=== PATIENT | male | born 1980 | race Caucasian/White ===

== ENCOUNTER 2017-12-26 18:40 | Emergency (ER) | payer SELFPAY ==
[2017-12-26] MEDS: ACETAMINOPHEN 500 MG TAB PO (19:48)
[2017-12-26] MEDS: IBUPROFEN 800 MG TAB PO (20:30)
== END 2017-12-26 21:21 | disposition home or self-care (01) ==
LOC: FTE 18:40
DX: S52.091A Other fracture of upper end of right ulna, initial encounter for closed fracture (principal); W01.0XXA Fall on same level from slipping, tripping and stumbling without subsequent striking against object, initial encounter; Y92.9 Unspecified place or not applicable
CPT/HCPCS: 29125; 73080-RT; 73090-RT; 99283-25